=== PATIENT | male | born 1970 | race Caucasian/White ===

== ENCOUNTER 2017-03-31 05:54 | Day surgery (SDC) | payer BC ==
[2017-03-31] MEDS ORDERED: Versed 2 MG/2 ML Injection IV ONE (05:55)
[2017-03-31] MEDS ORDERED: DIPRIVAN 200 MG/20 ML IV ONE (05:55)
[2017-03-31] MEDS ORDERED: SUBLIMAZE 100 MCG/2 ML IV ONE (05:55)
[2017-03-31] MEDS ORDERED: Lactated Ringers 1,000 ML IV SCH (06:30)
[2017-03-31] MEDS ORDERED: Lactated Ringers 1,000 ML IV ONE (08:15)
[2017-03-31 09:22] VITALS: BP 97/66; PULSE 50; O2SAT 99
--- NOTE | 2017-03-31 10:15 | OP ---
SURGERY DATE/TIME: 03/31/2017 0747 PREOPERATIVE DIAGNOSIS: Rectal bleeding. POSTOPERATIVE DIAGNOSIS: Proctosigmoid colitis. PROCEDURE: Colonoscopy with biopsy. SURGEON: Dr. George. ANESTHESIA: MAC. Medications given by anesthesia department. HISTORY: The patient is a 46 year-old white male patient presenting now for intermittent rectal bleeding. He also reports that he just does not feel well. The patient was felt the need to have endoscopic evaluation. He was appraised of the risks of the procedure including the risk of perforation, phlebitis, untoward reaction to medication, bleeding and missed lesions. The patient verbalized his understanding and desired to have the procedure performed. DESCRIPTION OF PROCEDURE: The patient was given the medications by the anesthesia department. He had continuous pulse oximetry, ECG monitoring, intermittent blood pressure monitoring and tidal CO2 monitoring during the examination. He was placed in the left lateral decubitus position. A digital rectal examination was performed and revealed normal anal sphincter tone and no masses. The flexible Olympus pediatric colonoscope was used to intubate the rectum. A view of the colon was developed sequentially to the cecum including a short distance into the terminal ileum. Upon insertion and withdrawal, including a retroflex view in the rectum was noted to be mucous and erythema throughout the rectum and most of the sigmoid colon. Biopsies were obtained in this area to rule out the presence of colitis. The scope was removed from the patient who tolerated the procedure well and was sent back to OP recovery in good condition. The prep was noted to be fair to good.
== END 2017-03-31 09:31 | disposition home or self-care (01) ==
LOC: SDC 05:54
PROVIDERS: ATTEND Family Medicine
PROC: 0DBN8ZX Excision of Sigmoid Colon, Via Natural or Artificial Opening Endoscopic, Diagnostic (ICD-10-PCS; principal; 2017-03-31)
DX: K51.80 Other ulcerative colitis without complications (principal); K62.5 Hemorrhage of anus and rectum
CPT/HCPCS: 00810; 36415; 88305; J2250; J2704; J3010

== ENCOUNTER 2017-04-01 16:23 | Emergency (ER) | payer BC ==
[2017-04-01 16:36] VITALS: O2SAT 95
--- NOTE | 2017-04-01 17:08 | ERPHSYRPT ---
- History of Present Illness Time Seen by Provider: 04/01/17 16:58 Historian: patient, family Exam Limitations: no limitations Patient Subjective Stated Complaint: pt states he had a colonoscopy done on 03/31. states he has had abdominal pain before his procedure. states pain became worse over the last 12 hrs. pt states he is eating and drinking wnl. pt c/o pain to right pelvic area. denies any dysuria. Triage Nursing Assessment: pt pink, warm, dry. abdomen soft. nontender bowel sounds present in all 4 quads. pt afebrile. Physician History: The patient is a 46-year-old male with his complaining of right groin pain. He's noticed this pain for about 2 weeks. It has been very mild. Yesterday he had a colonoscopy and today the right groin pain is significantly worse. The colonoscopy was performed because for the past 2 forbes he's had intermittent bouts of constipation, diarrhea, and bloody stools. He called his local doctor today who wanted him to come to the emergency room. He denies fever or chills. He thinks it might be a right sided hernia and wants to be checked for that as well. He had a left inguinal hernia repair done several years ago and the pain was very similar then as it is now. Timing/Duration: week(s) (2) Activities at Onset: none Quality: sharpness Abdominal Pain Onset Location: RLQ (right groin) Pain Radiation: no radiation Severity of Pain-Max: moderate Severity of Pain-Current: moderate Modifying Factors: Improves With: nothing Associated Symptoms: denies symptoms Previous symptoms: same symptoms as today Allergies/Adverse Reactions: No Known Drug Allergies Allergy (Unverified 04/01/17 16:35) Home Medications: Multivitamin [Multivitamins] 1 each PO DAILY 03/31/17 [History] Hx Tetanus, Diphtheria Vaccination/Date Given: Yes (up to date) Hx Influenza Vaccination/Date Given: No Hx Pneumococcal Vaccination/Date Given: No Immunizations Up to Date: Yes - Review of Systems Constitutional: No Fever, No Chills Eyes: No Symptoms Ears, Nose, & Throat: No Symptoms Respiratory: No Cough, No Dyspnea Cardiac: No Chest Pain, No Edema, No Syncope Abdominal/Gastrointestinal: Abdominal Pain Genitourinary Symptoms: No Dysuria Musculoskeletal: No Back Pain, No Neck Pain Skin: No Rash Neurological: No Dizziness, No Focal Weakness, No Sensory Changes Psychological: No Symptoms Endocrine: No Symptoms Hematologic/Lymphatic: No Symptoms Immunological/Allergic: No Symptoms All Other Systems: Reviewed and Negative - Past Medical History Pertinent Past Medical History: No Neurological History: No Pertinent History ENT History: No Pertinent History Cardiac History: No Pertinent History Respiratory History: No Pertinent History, Other Endocrine Medical History: No Pertinent History Musculoskeletal History: No Pertinent History GI Medical History: Hernia History: No Pertinent History Psycho-Social History: No Pertinent History Male Reproductive Disorders: No Pertinent History - Past Surgical History Past Surgical History: Yes Neuro Surgical History: No Pertinent History Cardiac: No Pertinent History Respiratory: No Pertinent History Gastrointestinal: Hernia Repair Genitourinary: No Pertinent History Musculoskeletal: No Pertinent History Male Surgical History: No Pertinent History - Social History Smoking Status: Never smoker Exposure to second hand smoke: Yes Drug Use: none Patient Lives Alone: No - Nursing Vital Signs Nursing Vital Signs: Initial Vital Signs Temperature 97.9 F 04/01/17 16:25 Pulse Rate 72 04/01/17 16:25 Respiratory Rate 18 04/01/17 16:25 Blood Pressure 103/66 04/01/17 16:25 O2 Sat by Pulse Oximetry 95 04/01/17 16:25 Pain Scale Pain Intensity 0 - Physical Exam General Appearance: no apparent distress, alert Eye Exam: PERRL/EOMI, eyes nml inspection Ears, Nose, Throat Exam: normal ENT inspection, pharynx normal, moist mucous membranes Neck Exam: normal inspection, non-tender, supple, full range of motion Respiratory Exam: normal breath sounds, lungs clear, No respiratory distress Cardiovascular Exam: regular rate/rhythm, normal heart sounds Gastrointestinal/Abdomen Exam: soft, hernia (Evaluation of the right groin shows a small right inguinal hernia present upon increased abdominal pressure.) , No tenderness, No mass Rectal Exam: not done Back Exam: normal inspection, normal range of motion, No CVA tenderness, No vertebral tenderness Extremity Exam: normal inspection, normal range of motion, pelvis stable Neurologic Exam: alert, oriented x 3, cooperative, normal mood/affect, nml cerebellar function, sensation nml, No motor deficits Skin Exam: normal color, warm, dry SpO2 Interpretation: normal SpO2: 95 Oxygen Delivery: Room Air - Radiology Exams Abdomen X-ray Interpretation: Interpreted by me, Negative (neg chest, nonacute abd, no free air in abd.) Ordered Tests: Active Orders 24 hr Category Date Time Status OBSTR/ACUTE ABDOMEN SERIES Stat Exams 04/01/17 17:13 Taken BMP Stat Lab 04/01/17 17:37 Completed CBC W DIFF Stat Lab 04/01/17 17:37 Completed Lactic Acid Stat Lab 04/01/17 17:35 Completed UA W/RFX UR CULTURE Stat Lab 04/01/17 17:00 Completed Urine Triage Profile Stat Lab 04/01/17 17:17 Completed Lab/Rad Data: Laboratory Result Diagrams 04/01/17 17:37 04/01/17 17:37 Laboratory Results 04/01/17 04/01/17 04/01/17 Range/Units 17:37 17:37 17:35 WBC 9.4 (4.0-10.5) K/mm3 RBC 4.35 (4.1-5.6) M/mm3 Hgb 13.4 (12.5-18.0) gm/dl Hct 40.2 L (42-50) % MCV 92.4 (78-100) fl MCH 30.8 (26-32) pg MCHC 33.3 (32-36) g/dl RDW 12.3 (11.5-14.0) % Plt Count 233 (150-450) K/mm3 MPV 11.6 H (6-9.5) fl Gran % 65.9 (36.0-66.0) % Lymphocytes % 19.3 L (24.0-44.0) % Monocytes % 10.1 (0.0-12.0) % Eosinophils % 4.6 (0.00-5.0) % Basophils % 0.1 (0.0-0.4) % Basophils # 0.01 (0-0.4) Sodium 141 (136-145) mEq/L Potassium 3.5 (3.5-5.1) mEq/L Chloride 106 (98-107) mEq/L Carbon Dioxide 26.6 (21-32) mEq/L Anion Gap 12.2 (5-15) MEQ/L BUN 6 L (9-20) mg/dL Creatinine 0.85 (0.55-1.30) mg/dl Estimated GFR > 60 ML/MIN Glucose 114 H (70-110) MG/DL Lactic Acid 1.0 (0.4-2.0) Calcium 8.7 (8.5-10.1) mg/dL Ur Collection Type Urine Color (YELLOW) Urine Appearance (CLEAR) Urine pH (5-6) Ur Specific Parker (1.005-1.025) Urine Protein (Negative) Urine Ketones (NEGATIVE) Urine Blood (0-5) Mark/ul Urine Nitrite (NEGATIVE) Urine Bilirubin (NEGATIVE) Urine Urobilinogen (0-1) mg/dL Ur Leukocyte Esterase (NEGATIVE) Urine Glucose (NEGATIVE) mg/dL Urine Opiates Level (NEGATIVE) Ur Methadone (NEGATIVE) Urine Barbiturates (NEGATIVE) Ur Phencyclidine (PCP) (NEGATIVE) Urine Amphetamine (NEGATIVE) U Benzodiazepine Level (NEGATIVE) Urine Cocaine (NEGATIVE) Urine Marijuana (THC) (NEGATIVE) Specimen Received 04/01/17 04/01/17 Range/Units 17:17 17:00 WBC (4.0-10.5) K/mm3 RBC (4.1-5.6) M/mm3 Hgb (12.5-18.0) gm/dl Hct (42-50) % MCV (78-100) fl MCH (26-32) pg MCHC (32-36) g/dl RDW (11.5-14.0) % Plt Count (150-450) K/mm3 MPV (6-9.5) fl Gran % (36.0-66.0) % Lymphocytes % (24.0-44.0) % Monocytes % (0.0-12.0) % Eosinophils % (0.00-5.0) % Basophils % (0.0-0.4) % Basophils # (0-0.4) Sodium (136-145) mEq/L Potassium (3.5-5.1) mEq/L Chloride (98-107) mEq/L Carbon Dioxide (21-32) mEq/L Anion Gap (5-15) MEQ/L BUN (9-20) mg/dL Creatinine (0.55-1.30) mg/dl Estimated GFR ML/MIN Glucose (70-110) MG/DL Lactic Acid (0.4-2.0) Calcium (8.5-10.1) mg/dL Ur Collection Type CLEAN CATCH Urine Color YELLOW (YELLOW) Urine Appearance CLEAR (CLEAR) Urine pH 6.0 (5-6) Ur Specific Parker 1.010 (1.005-1.025) Urine Protein NEGATIVE (Negative) Urine Ketones NEGATIVE (NEGATIVE) Urine Blood NEGATIVE (0-5) Mark/ul Urine Nitrite NEGATIVE (NEGATIVE) Urine Bilirubin NEGATIVE (NEGATIVE) Urine Urobilinogen NORMAL (0-1) mg/dL Ur Leukocyte Esterase NEGATIVE (NEGATIVE) Urine Glucose NEGATIVE (NEGATIVE) mg/dL Urine Opiates Level NEG. (NEGATIVE) Ur Methadone NEG. (NEGATIVE) Urine Barbiturates NEG. (NEGATIVE) Ur Phencyclidine (PCP) NEG. (NEGATIVE) Urine Amphetamine NEG. (NEGATIVE) U Benzodiazepine Level NEG. (NEGATIVE) Urine Cocaine NEG. (NEGATIVE) Urine Marijuana (THC) NEG. (NEGATIVE) Specimen Received 04/01/17 1700 - Progress Progress: improved Counseled pt/family regarding: lab results, diagnosis, need for follow-up, rad results - Departure Time of Disposition: 18:30 Departure Disposition: Home Clinical Impression: Right inguinal hernia Condition: Stable Critical Care Time: No Referrals: ROMELIA PATEL [Primary Care Provider] - Additional Instructions: Your laboratory results were normal. The x-ray of her abdomen did not show any free air in the abdomen. Physical exam showed a small right inguinal hernia. Follow-up with his surgeon for further evaluation.
[2017-04-01 17:49] LABS: BASOPHIL % 0.1 % (0.0-0.4); Eosinophil % 4.6 % (0.00-5.0); Granulocytes % 65.9 % (36.0-66.0); Lymphocytes % 19.3 % (24.0-44.0); Mean Cell Volume 92.4 fl (78-100); Mean Corpuscular Hemoglobin 30.8 pg (26-32); Mean Platelet Volume 11.6 fl (6-9.5); Monocytes % 10.1 % (0.0-12.0); Platelet Count 233 K/mm3 (150-450); Red Blood Count 4.35 M/mm3 (4.1-5.6); Red Cell Distribution Width 12.3 % (11.5-14.0); White Blood Count 9.4 K/mm3 (4.0-10.5)
[2017-04-01 17:53] LABS: ANION GAP 12.2 MEQ/L (5-15); BLOOD UREA NITROGEN 6 mg/dL (9-20); CHLORIDE 106 mEq/L (98-107); Carbon Dioxide 26.6 mEq/L (21-32); Glucose 114 MG/DL (70-110); Potassium 3.5 mEq/L (3.5-5.1); SODIUM 141 mEq/L (136-145)
[2017-04-01 18:08] LABS: Bilirubin NEGATIVE (NEGATIVE); Blood NEGATIVE Ery/ul (0-5); Collection Type CLEAN CATCH; Glucose NEGATIVE (NEGATIVE); Leukocyte Esterase NEGATIVE (NEGATIVE)
[2017-04-01 18:09] LABS: ADD URINE CULTURE? NO (NO); COMPLETE URINE MICROSCOPIC? NO
[2017-04-01 18:47] VITALS: BP 111/68; PULSE 73
--- NOTE | 2017-04-02 09:00 | XRAY ---
Indication: Right groin pain following colonoscopy. Comparison: Chest exam May 12, 2014. 2 views of the abdomen nonacute and nonobstructed. Bilateral pelvic phleboliths. Solid organs and osseous structures unremarkable. Single frontal chest again demonstrates normal heart, lungs, and bony thorax. Impression: Nonacute nonobstructed abdomen. Stable normal 1 view chest.
== END 2017-04-01 18:46 | disposition home or self-care (01) ==
LOC: ED 16:23
DX: K40.90 Unilateral inguinal hernia, without obstruction or gangrene, not specified as recurrent (principal); Z98.890 Other specified postprocedural states
CPT/HCPCS: 36415; 74022; 80048; 80307; 81002; 83605; 85025; 99284